=== PATIENT | female | born 1935 | race Two or more races ===

== ENCOUNTER 2017-01-23 03:42 | Inpatient (IN) | payer MEDICARE, MEDICAID ==
[~2017-01-23] VITALS: Ht 154.9 cm; Wt 99.8 kg
[2017-01-23] VITALS (7 sets, daily range): BP systolic 102–130; BP diastolic 50–70
--- NOTE | 2017-01-23 03:51 | Emergency Room Report ---
History of Present Illness General Chief Complaint: Chest Pain Source: Family Member, EMS Present Illness HPI Is an 81-year-old female with history of diabetes. She presents with chief complaint of chest pain and shortness of breath. According to family, patient complaining of dizziness and palpitation earlier today. She woke up and drink some pink lemonade. It was infused with marijuana. She did not know this. She went to sleep and woke up 3 hours later complaint of dizziness. Also complaining of chest pain and arm numbness. No nausea no vomiting. They called 911. EMS gave her aspirin and 3 nitroglycerin. It helped with the pressure. No nausea no vomiting. She felt she can't breathe. Denies any trauma. No exertional component. No diaphoresis. Nauseous but no vomiting. Allergies: Coded Allergies: No Known Allergies (Unverified , 01/23/17) Patient History Past Medical History: see triage record, old chart reviewed, DM Past Surgical History: other Pertinent Family History: none Social History: Denies: smoking Now: No Immunizations: other Reviewed Nursing Documentation: PMH: Agreed, PSxH: Agreed Nursing Documentation-PMH Hx Cardiac Problems: No - Hypothyroidism Hx Diabetes: Yes Review of Systems Eye: Denies: eye pain, blurred vision ENT: Denies: ear pain, nose congestion, throat swelling Respiratory: Reports: shortness of breath, Denies: cough Cardiovascular: Reports: chest pain, Denies: palpitations Gastrointestinal: Reports: abdominal pain, Denies: diarrhea, nausea, vomiting Musculoskeletal: Denies: back pain, joint pain Skin: Denies: rash Neurological: Denies: headache, numbness Endocrine: Denies: increased thirst, increased urine Hematologic/Lymphatic: Denies: easy bruising All Other Systems: negative except mentioned in HPI Physical Exam Vital Signs Date Time Temp Pulse Resp B/P (MAP) Pulse Ox O2 Delivery O2 Flow Rate FiO2 01/23/17 03:36 98.1 94 19 130/66 97 vitals normal Sp02 EP Interpretation: reviewed, normal General Appearance: well appearing, no apparent distress, alert, obese Head: normocephalic, atraumatic Eyes: bilateral eye PERRL, bilateral eye EOMI ENT: hearing grossly normal, normal pharynx Neck: full range of motion, supple, no meningismus Respiratory: chest non-tender, lungs clear, normal breath sounds Cardiovascular #1: regular rate, rhythm, no murmur Gastrointestinal: normal bowel sounds, non tender, no mass, no organomegaly, no bruit, non-distended Musculoskeletal: back normal, normal range of motion Psychiatric: anxious - Hyperventilating Skin: warm/dry Medical Decision Making Diagnostic Impression: Primary Impression: Chest pain Qualified Codes: R07.9 - Chest pain, unspecified Additional Impressions: Cannabis-induced anxiety disorder Morbid obesity with BMI of 40.0-44.9, adult ER Course She present with chest pain. She has multiple risk factors including obesity, high blood pressure, age, and diabetes. Symptoms may be induced by THC induced lemonade. will repeat trop and if neg, will dc home. I discussed case with doctor electron beam machine welder setter and she is willing to see pt this morning at 9am. because patient troponin is trending upward, who will admit her for further workup. Lab Results Impression labs unremarkable EKG Diagnostic Results Rate: normal Rhythm: NSR ST Segments: no acute changes ASA given to the pt in ED: No - Received by EMS Rhythm Strip Diag. Results Rhythm Strip Time: 03:51 EP Interpretation: yes Rate: 95 Rhythm: NSR, no PVC's, no ectopy Chest X-Ray Diagnostic Results Chest X-Ray Diagnostic Results : Chest X-Ray Ordered: Yes # of Views/Limited/Complete: 1 View Indication: Chest Pain EP Interpretation: Yes Interpretation: no consolidation, no effusion, no pneumothorax, no acute cardiopulmonary disease Impression: No acute disease Electronically Signed by: Electronically signed by Cassius Masters MD Last Vital Signs Date Time Temp Pulse Resp B/P (MAP) Pulse Ox O2 Delivery O2 Flow Rate FiO2 01/23/17 03:36 98.1 94 19 130/66 97 Status: improved Disposition: ADMITTED INPATIENT Condition: Serious CASSIUS MASTERS M.D. Jan 23, 2017 03:51
[2017-01-23] MEDS ORDERED: LORazepam Inj 2mg/ml 1ml IV ONE (04:00)
[2017-01-23 04:18] LABS: BASOPHILS % (AUTO) 1.1 % (0.0-2.0); EOSINOPHILS % (AUTO) 2.1 % (0.0-3.0); MEAN CORPUSCULAR HEMOGLOBIN 32.3 PG (27.0-31.0); MEAN CORPUSCULAR HGB CONC 32.3 G/DL (32.0-36.0); MEAN CORPUSCULAR VOLUME 100 FL (80-99); MEAN PLATELET VOLUME 7.6 FL (6.5-10.1); NEUTROPHILS % (AUTO) 61.9 % (45.0-75.0); PLATELET COUNT 181 K/UL (150-450); RED BLOOD COUNT 4.33 M/UL (4.20-5.40); RED CELL DISTRIBUTION WIDTH 12.1 % (11.6-14.8); WHITE BLOOD COUNT 6.9 K/UL (4.8-10.8)
[2017-01-23 04:37] LABS: ALANINE AMINOTRANSFERASE 32 U/L (12-78); ALBUMIN/GLOBULIN RATIO 1.1 (1.0-2.7); ANION GAP 5 (5-15); ASPARTATE AMINO TRANSFERASE 23 U/L (15-37); CALCIUM 9.9 MG/DL (8.5-10.1); CARBON DIOXIDE 33 MMOL/L (21-32); CHLORIDE 102 MMOL/L (98-107); CKMB 0.4 NG/ML (0.0-3.6); CREATININE 1.1 MG/DL (0.55-1.30); SODIUM 140 MMOL/L (136-145); TOTAL PROTEIN 6.9 G/DL (6.4-8.2)
[2017-01-23 05:01] LABS: APPEARANCE,URINE CLEAR; KETONES,URINE NEGATIVE (NEGATIVE); LEUKOCYTE ESTERASE ,URINE 1+ (NEGATIVE); NITRITE,URINE NEGATIVE (NEGATIVE); PH,URINE 5 (4.5-8.0); PROTEIN,URINE 1+ (NEGATIVE); UROBILINOGEN,URINE NORMAL MG/DL (0.0-1.0)
[2017-01-23 05:12] LABS: BACTERIA,URINE FEW /HPF; RBC,URINE 0-2 /HPF (0 - 2); SQUAMOUS EPITHELIAL CELL,UR FEW /LPF (NONE/OCC); WBC,URINE 0-2 /HPF (0 - 2)
[2017-01-23] MEDS ORDERED: ASPIRIN81 MG ORAL (06:44)
[2017-01-23] MEDS ORDERED: VITAMIN D1000 UNI1 ORAL (06:44)
[2017-01-23] MEDS ORDERED: LEVOTHYROXINE25 MCG ORAL (06:44)
--- NOTE | 2017-01-23 08:49 | Diagnostic Imaging Report ---
Indication: Pain Comparison: None. Findings: Single view of the chest is obtained. Please note exam is limited due to patient's large body habitus and underpenetration technique. Cardiac silhouette is enlarged.. Pulmonary vasculature is normal. Lungs are clear. Atelectasis seen in the left lower lobe. Bones are unremarkable. Impression: Limited exam due to patient's large body habitus. Cardiomegaly. There is no obvious acute pneumonitis or failure.
[2017-01-23] MEDS ORDERED: LORazepam 1mg tab ORAL PRN (12:45)
--- NOTE | 2017-01-23 13:25 | History and Physical ---
History of Present Illness General Date patient seen: Jan 23, 2017 Reason for Hospitalization: Chest Pain Present Illness HPI This is a 81 year old female with a PMH of hypothyroidism and DM who presents for shortness of breath and chest pain since last night. According to daughter, patient had some pink lemonade that was infused with cannabinoids last night ( for which she was unaware of). After an hour, she started complaining of dizziness, palpitations, shortness of breath, and chest pressure. Patient also reported bilateral upper extremity numbness and nausea but no vomiting. She was given aspirin and nitroglycerin x 3 by the EMS. Currently, patient still feels short of breath but otherwise denies chest pain, dizziness, or palpitations. She also reports severe left flank pain radiating to left upper quadrant, which started about 2 months ago intermittently but has worsened today. States that she has a h/o cholecystectomy. Denies diarrhea, constipation, h/o renal calculi. Also denies slurred speech, focal deficits, weakness, diaphoresis. Allergies: Coded Allergies: No Known Allergies (Unverified , 01/23/17) Medication History Scheduled Aspirin* (Aspirin*), 81 MG ORAL DAILY, (Reported) Cholecalciferol (Vitamin D3)* (Vitamin D*), Unknown Dose ORAL DAILY, (Reported) Levothyroxine Sodium* (Levothyroxine Sodium*), 25 MCG ORAL DAILY, (Reported) Patient History Limited by: language barrier History Provided By: Family Member Healthcare decision maker Resuscitation status Advanced Directive on File No Past Medical/Surgical History Past Medical/Surgical History: (1) Hypothyroidism (2) Hx of cholecystectomy Review of Systems All Other Systems: negative except mentioned in HPI Physical Exam General Appearance: no apparent distress HEENT: normocephalic, PERRL Neck: non-tender, normal alignment Respiratory/Chest: chest wall non-tender, lungs clear, normal breath sounds, no respiratory distress Cardiovascular/Chest: normal peripheral pulses, normal rate, regular rhythm Abdomen: normal bowel sounds, soft, no mass, other - left CVA tenderness Extremities: normal range of motion, non-tender, normal inspection Skin Exam: normal pigmentation, warm/dry Neurologic: merchandise complaint adjuster II-XII grossly normal, no motor/sensory deficits, alert, oriented x 3, responsive Last 24 Hour Vital Signs Date Time Temp Pulse Resp B/P (MAP) Pulse Ox O2 Delivery O2 Flow Rate FiO2 01/23/17 11:27 97.5 86 18 104/68 96 Nasal Cannula 3.0 01/23/17 09:59 70 01/23/17 09:45 98.4 76 17 106/51 97 Nasal Cannula 4.0 97 01/23/17 08:56 98.4 76 17 106/51 97 Nasal Cannula 01/23/17 06:55 98.7 75 16 107/60 96 Nasal Cannula 5.0 01/23/17 05:50 98.2 75 18 110/58 97 Nasal Cannula 5.0 01/23/17 04:53 98.0 84 20 122/70 96 Nasal Cannula 5.0 01/23/17 03:57 98.2 88 22 130/66 97 Nasal Cannula 5.0 01/23/17 03:55 80 22 Nasal Cannula 5.0 97 01/23/17 03:36 98.1 94 19 130/66 97 Intake and Output 01/23/17 01/24/17 19:00 07:00 Output Total 200 ml Balance -200 ml Output Urine Total 200 ml Laboratory Tests Test 01/23/17 03:55 01/23/17 04:40 01/23/17 05:30 White Blood Count 6.9 K/UL (4.8-10.8) Red Blood Count 4.33 M/UL (4.20-5.40) Hemoglobin 14.0 G/DL (12.0-16.0) Hematocrit 43.3 % (37.0-47.0) Mean Corpuscular Volume 100 FL (80-99) H Mean Corpuscular Hemoglobin 32.3 PG (27.0-31.0) H Mean Corpuscular Hemoglobin Concent 32.3 G/DL (32.0-36.0) Red Cell Distribution Width 12.1 % (11.6-14.8) Platelet Count 181 K/UL (150-450) Mean Platelet Volume 7.6 FL (6.5-10.1) Neutrophils (%) (Auto) 61.9 % (45.0-75.0) Lymphocytes (%) (Auto) 31.0 % (20.0-45.0) Monocytes (%) (Auto) 4.0 % (1.0-10.0) Eosinophils (%) (Auto) 2.1 % (0.0-3.0) Basophils (%) (Auto) 1.1 % (0.0-2.0) Sodium Level 140 MMOL/L (136-145) Potassium Level 4.0 MMOL/L (3.5-5.1) Chloride Level 102 MMOL/L (98-107) Carbon Dioxide Level 33 MMOL/L (21-32) H Anion Gap 5 (5-15) Blood Urea Nitrogen 24 mg/dL (7-18) H Creatinine 1.1 MG/DL (0.55-1.30) Estimat Glomerular Filtration Rate mL/min (>60) Glucose Level 199 MG/DL (74-106) H Calcium Level 9.9 MG/DL (8.5-10.1) Total Bilirubin 0.5 MG/DL (0.2-1.0) Aspartate Amino Transf (AST/SGOT) 23 U/L (15-37) Alanine Aminotransferase (ALT/SGPT) 32 U/L (12-78) Alkaline Phosphatase 79 U/L (46-116) Total Creatine Kinase 39 U/L (26-308) Creatine Kinase MB 0.4 NG/ML (0.0-3.6) Creatine Kinase MB Relative Index 1.0 Troponin I 0.001 ng/mL (0.000-0.056) 0.007 ng/mL (0.000-0.056) Pro-B-Type Natriuretic Peptide 48 (0-125) Total Protein 6.9 G/DL (6.4-8.2) Albumin 3.6 G/DL (3.4-5.0) Globulin 3.3 g/dL Albumin/Globulin Ratio 1.1 (1.0-2.7) Urine Color Yellow Urine Appearance Clear Urine pH 5 (4.5-8.0) Urine Specific [place] 1.025 (1.005-1.035) Urine Protein 1+ (NEGATIVE) H Urine Glucose (UA) Negative (NEGATIVE) Urine Ketones Negative (NEGATIVE) Urine Occult Blood Negative (NEGATIVE) Urine Nitrite Negative (NEGATIVE) Urine Bilirubin Negative (NEGATIVE) Urine Urobilinogen Normal MG/DL (0.0-1.0) Urine Leukocyte Esterase 1+ (NEGATIVE) H Urine RBC 0-2 /HPF (0 - 2) Urine WBC 0-2 /HPF (0 - 2) Urine Squamous Epithelial Cells Few /LPF (NONE/OCC) Urine Bacteria Few /HPF (NONE) Height (Feet): 5 Height (Inches): 1.00 Weight (Pounds): 220 Medications Current Medications Medications (Trade) Dose Ordered Sig/Mj Route PRN Reason Start Time Stop Time Status Last Admin Dose Admin Acetaminophen (Tylenol) 650 mg Q6H PRN ORAL Mild Pain/Temp > 100.5 01/23/17 12:45 02/22/17 12:44 Lorazepam (Ativan) 1 mg Q6H PRN ORAL For Anxiety 01/23/17 12:45 01/30/17 12:44 Ondansetron HCl (Zofran) 4 mg Q6H PRN IVP Nausea & Vomiting 01/23/17 12:45 02/22/17 12:44 Assessment/Plan Problem List: (1) Diabetes ICD Codes: E11.9 - Type 2 diabetes mellitus without complications SNOMED: 08238813 (2) Chest pain ICD Codes: R07.9 - Chest pain, unspecified SNOMED: 99542878, 087073995 Qualifiers: Qualified Codes: R07.9 - Chest pain, unspecified (3) Cannabis-induced anxiety disorder ICD Codes: F12.980 - Cannabis use, unspecified with anxiety disorder SNOMED: 33285765 (4) Morbid obesity with BMI of 40.0-44.9, adult ICD Codes: E66.01 - Morbid (severe) obesity due to excess calories; Z68.41 - Body mass index (BMI) 40.0-44.9, adult SNOMED: 012115147, 525437632 (5) Hypothyroidism ICD Codes: E03.9 - Hypothyroidism, unspecified SNOMED: 56919891 (6) Hx of cholecystectomy ICD Codes: Z90.49 - Acquired absence of other specified parts of digestive tract SNOMED: 25305532, 404197112 (7) Acute flank pain ICD Codes: R10.9 - Unspecified abdominal pain SNOMED: 056838053 Status: stable Status Narrative This is a 81 y/o female with a PMH of diabetes and hypothyroidism who presents with chest pain, sob, palpitations, and dizziness after drinking cannabis- infused pink lemonade. EKG was NSR but troponins were uptrending so patient was further admitted for ACS rule out. Assessment/Plan - Admit to tele - Continue home meds including levothyroxine, ASA 81mg, and vitamin D - Trend troponins q6hr x 2 - check urine tox - ativan prn - Check TTE - CXR reviewed with no active disease. Cardiomegaly present - EKG reviewed NSR - Cardiology consulted - Check amylase, lipase, CT a/p w/o contrast given left flank pain radiating to left upper quadrant - zofran and pain control prn - Continue levothyroxine. Check TSH - off diabetic meds. check A1c Andree Brown N.P. Jan 23, 2017 13:25
[2017-01-23 15:00] LABS: THYROID STIMULATING HORMONE 0.957 uiU/mL (0.360-3.740)
[2017-01-23] MEDS: Heparin 5000 units/ml inj SUBQ SCH (22:41)
[2017-01-24 04:48] VITALS: BP 106/57
[2017-01-24 08:17] VITALS: BP 68/34
[2017-01-24 08:46] LABS: BASOPHILS % (AUTO) 0.8 % (0.0-2.0); EOSINOPHILS % (AUTO) 2.3 % (0.0-3.0); LYMPHOCYTES % (AUTO) 36.6 % (20.0-45.0); MEAN CORPUSCULAR HEMOGLOBIN 33.6 PG (27.0-31.0); MEAN CORPUSCULAR HGB CONC 32.4 G/DL (32.0-36.0); MEAN CORPUSCULAR VOLUME 104 FL (80-99); MONOCYTES % (AUTO) 5.1 % (1.0-10.0); NEUTROPHILS % (AUTO) 55.2 % (45.0-75.0); PLATELET COUNT 159 K/UL (150-450); RED BLOOD COUNT 4.17 M/UL (4.20-5.40); RED CELL DISTRIBUTION WIDTH 12.6 % (11.6-14.8)
[2017-01-24] MEDS ORDERED: D5 1/2NS 1,000 ML IV SCH (09:00)
[2017-01-24] MEDS ORDERED: Sodium Chloride 500ML 500 ML IV ONE (09:00)
[2017-01-24 09:09] LABS: ALANINE AMINOTRANSFERASE 32 U/L (12-78); ALBUMIN/GLOBULIN RATIO 1.1 (1.0-2.7); ANION GAP 2 (5-15); ASPARTATE AMINO TRANSFERASE 21 U/L (15-37); CALCIUM 9.4 MG/DL (8.5-10.1); CARBON DIOXIDE 36 MMOL/L (21-32); CHLORIDE 107 MMOL/L (98-107); CREATININE 0.9 MG/DL (0.55-1.30); POTASSIUM 4.5 MMOL/L (3.5-5.1); SODIUM 145 MMOL/L (136-145); TOTAL PROTEIN 6.4 G/DL (6.4-8.2)
[2017-01-24] MEDS: Heparin 5000 units/ml inj SUBQ SCH ×2 (09:15→21:06)
[2017-01-24 11:50] VITALS: BP 92/43
--- NOTE | 2017-01-24 11:56 | Diagnostic Imaging Report ---
Indication: Left flank pain Technique: Spiral acquisitions obtained through the abdomen and pelvis. No oral or IV contrast utilized, per urinary stone protocol. Multiplanar reconstructions were generated. Total dose length product 1046 mGycm. CTDIvol(s) 19 mGy. Dose reduction achieved using automated exposure control Comparison: None Findings: No renal or ureteral calculi, hydronephrosis, or hydroureter demonstrated on either side. Lack of IV contrast limits assessment of the renal parenchyma. There is a 1 cm cyst coming off of the lower pole right kidney. No gross left renal mass or cyst demonstrated. There is colonic diverticulosis. No evidence of diverticulitis. What is probably a tiny normal appendix is visualized. There is a small fat-containing broad-based umbilical hernia which contain only fat. No small bowel distention. No free or loculated intraperitoneal air or fluid. Distal esophagus, stomach, duodenum are unremarkable. Lack of IV contrast limits assessment of the solid organs. The liver is grossly unremarkable. The gallbladder is surgically absent. No biliary ductal dilatation. The pancreas is somewhat atrophic. Scattered calcifications are seen within the spleen. The adrenals are unremarkable. The uterus is prominent for age, demonstrates a globular configuration. No adnexal mass demonstrated. Atelectatic changes are seen at both lung bases. The heart is enlarged. The bones demonstrate degenerative spondylosis changes. Impression: Negative for obstructive uropathy or urinary stone disease. No other acute pathology demonstrated Incidental finding small right lower pole renal cyst Prominent uterus with globular configuration. Most likely on the basis of fibroid changes, but endometrial polyp not excludable. Recommend pelvic and endovaginal ultrasound for further evaluation Diverticulosis. No evidence of diverticulitis Evidence of prior cholecystectomy Cardiomegaly Other findings as noted, including degenerative spondylosis, basilar pulmonary parenchymal atelectasis, pancreatic atrophy, small fat-containing umbilical hernia The CT scanner at [facility] is accredited by the [employer] and the scans are performed using protocols designed to limit radiation exposure to as low as reasonably achievable to attain images of sufficient resolution adequate for diagnostic evaluation.
--- NOTE | 2017-01-24 14:05 | General Progress Note ---
Assessment/Plan Problem List: (1) Mid to lower back pain (2) Chest pain ICD Codes: R07.9 - Chest pain, unspecified SNOMED: 47023829, 885379194 Qualifiers: Qualified Codes: R07.9 - Chest pain, unspecified (3) Diabetes Assessment & Plan: A1C 7.3 ICD Codes: E11.9 - Type 2 diabetes mellitus without complications SNOMED: 96358860 (4) Cannabis-induced anxiety disorder ICD Codes: F12.980 - Cannabis use, unspecified with anxiety disorder SNOMED: 88016704 (5) Morbid obesity with BMI of 40.0-44.9, adult ICD Codes: E66.01 - Morbid (severe) obesity due to excess calories; Z68.41 - Body mass index (BMI) 40.0-44.9, adult SNOMED: 090079393, 558257957 (6) Hypothyroidism ICD Codes: E03.9 - Hypothyroidism, unspecified SNOMED: 02262814 (7) Acute flank pain ICD Codes: R10.9 - Unspecified abdominal pain SNOMED: 547823029 Status: stable Status Narrative This is a 81 y/o female with a PMH of diabetes and hypothyroidism who presents with chest pain, sob, palpitations, and dizziness after drinking cannabis- infused pink lemonade. EKG was NSR but troponins were uptrending so patient was further admitted for ACS rule out. Trop neg x 3 so pt has been ruled out for ACS. Assessment/Plan - Monitor on tele - Continue home meds including levothyroxine, ASA 81mg, and vitamin D - Trop neg x3 - TTE reviewed and unremarkable, normal EF - Ativan prn - Cardiology consulted--plan for nuc stress test in AM - CT a/p done for acute flank pain was unremarkable. - Check L and T spine x-rays - Zofran and pain control prn DVT Prophylaxis: SCD, HSQ Code Status: Full Hospital Classification Declaration: Based on this initial evaluation, and depending on the patient's clinical course, I anticipate that this patient will require hospitalization for 1-2 days for cardiology eval and close respiratory/ hemodynamic monitoring. Disposition: Once the patient is stable to leave the hospital, I anticipate the patient will likely be discharged to the following environment: home with vs SNF I spent 45 minutes on this patient's case, and 25 minutes were dedicated to counseling and/or care coordination. Discussed with patient/family, nursing staff, SW/CM, cardiology regarding clinical status, treatment course, and disposition planning. Time of note may not reflect time of encounter. Subjective Date patient seen: Jan 24, 2017 Time patient seen: 14:05 ROS Limited/Unobtainable: No Constitutional: Reports: no symptoms HEENT: Reports: no symptoms Cardiovascular: Reports: no symptoms Respiratory: Reports: no symptoms Gastrointestinal/Abdominal: Reports: no symptoms Genitourinary: Reports: no symptoms Neurologic/Psychiatric: Reports: no symptoms Endocrine: Reports: no symptoms Hematologic/Lymphatic: Reports: no symptoms Allergies: Coded Allergies: No Known Allergies (Unverified , 01/23/17) Subjective No acute o/n events Trop neg x [address] a/p unremarkable Pt c/o L sided abd/flank/back pain Denies chest pain, SOB, f/c, n/v, d/c Daughter at bedside requesting back x-rays Objective Last 24 Hour Vital Signs Date Time Temp Pulse Resp B/P (MAP) Pulse Ox O2 Delivery O2 Flow Rate FiO2 01/24/17 12:00 63 01/24/17 11:50 96.3 74 18 92/43 98 Nasal Cannula 4.0 01/24/17 08:17 97.7 66 18 68/34 99 Nasal Cannula 4.0 01/24/17 08:00 63 01/24/17 04:48 97.5 73 20 106/57 93 Nasal Cannula 4.0 73 01/24/17 04:00 71 01/24/17 00:00 62 01/23/17 20:00 64 01/23/17 16:00 72 01/23/17 15:45 97.9 64 18 102/50 96 Nasal Cannula 4.0 Intake and Output 01/24/17 01/25/17 19:00 07:00 Output Total 250 ml Balance -250 ml Output Urine Total 250 ml Laboratory Tests 01/23/17 14:25: Hemoglobin A1c 7.3H, Troponin I 0.006, Amylase Level 38, Lipase 123, Thyroid Stimulating Hormone (TSH) 0.957 01/23/17 19:10: Troponin I 0.017 01/24/17 07:50: White Blood Count 5.0, Red Blood Count 4.17L, Hemoglobin 14.0, Hematocrit 43.2, Mean Corpuscular Volume 104H, Mean Corpuscular Hemoglobin 33.6H, Mean Corpuscular Hemoglobin Concent 32.4, Red Cell Distribution Width 12.6, Platelet Count 159, Mean Platelet Volume 8.0, Neutrophils (%) (Auto) 55.2, Lymphocytes (% ) (Auto) 36.6, Monocytes (%) (Auto) 5.1, Eosinophils (%) (Auto) 2.3, Basophils ( %) (Auto) 0.8, Sodium Level 145, Potassium Level 4.5, Chloride Level 107, Carbon Dioxide Level 36H, Anion Gap 2L, Blood Urea Nitrogen 20H, Creatinine 0.9 , Estimat Glomerular Filtration Rate , Glucose Level 104, Calcium Level 9.4, Total Bilirubin 0.4, Aspartate Amino Transf (AST/SGOT) 21, Alanine Aminotransferase (ALT/SGPT) 32, Alkaline Phosphatase 62, Total Protein 6.4, Albumin 3.3L, Globulin 3.1, Albumin/Globulin Ratio 1.1 Height (Feet): 5 Height (Inches): 1.00 Weight (Pounds): 220 Objective General: alert, cooperative, no distress, appears stated age Head: normocephalic, without obvious abnormality, atraumatic Eyes: conjunctivae/corneas clear. PERRL, EOM's intact Throat: lips, mucosa, and tongue normal. MMM Neck: supple, symmetrical, trachea midline, and no JVD Lungs: clear to auscultation bilaterally Heart: regular rate and rhythm, S1, S2 normal, no murmur, click, rub or gallop Abdomen: soft, non-tender, non-distended, bowel sounds normal; no masses or organomegaly Extremities: extremities normal, atraumatic, no cyanosis or edema Pulses: 2+ and symmetric Skin: skin color, texture, turgor normal; no rashes or lesions Neurologic: grossly normal, no focal deficits Darwin Sharp M.D. Jan 24, 2017 14:05
[2017-01-24 15:25] VITALS: BP 90/39
[2017-01-24] MEDS: NovoLOG Insulin Flexpen SUBQ SCH ×2 (16:30→21:00)
--- NOTE | 2017-01-24 17:08 | Cardiac Electrophysiology PN ---
Subjective Subjective Dictated.No MA. ECG LAFB, ECHO NL EF, Stress test in am.[id number] Objective Last 24 Hour Vital Signs Date Time Temp Pulse Resp B/P (MAP) Pulse Ox O2 Delivery O2 Flow Rate FiO2 01/24/17 15:25 96.9 78 18 90/39 94 Nasal Cannula 4.0 01/24/17 12:00 63 01/24/17 11:50 96.3 74 18 92/43 98 Nasal Cannula 4.0 01/24/17 08:17 97.7 66 18 68/34 99 Nasal Cannula 4.0 01/24/17 08:00 63 01/24/17 04:48 97.5 73 20 106/57 93 Nasal Cannula 4.0 73 01/24/17 04:00 71 01/24/17 00:00 62 01/23/17 20:00 64 Intake and Output 01/24/17 01/25/17 19:00 07:00 Intake Total 320 ml Output Total 250 ml Balance 70 ml Intake Oral 320 ml Output Urine Total 250 ml Laboratory Tests Test 01/23/17 19:10 01/24/17 07:50 Troponin I 0.017 ng/mL (0.000-0.056) White Blood Count 5.0 K/UL (4.8-10.8) Red Blood Count 4.17 M/UL (4.20-5.40) L Hemoglobin 14.0 G/DL (12.0-16.0) Hematocrit 43.2 % (37.0-47.0) Mean Corpuscular Volume 104 FL (80-99) H Mean Corpuscular Hemoglobin 33.6 PG (27.0-31.0) H Mean Corpuscular Hemoglobin Concent 32.4 G/DL (32.0-36.0) Red Cell Distribution Width 12.6 % (11.6-14.8) Platelet Count 159 K/UL (150-450) Mean Platelet Volume 8.0 FL (6.5-10.1) Neutrophils (%) (Auto) 55.2 % (45.0-75.0) Lymphocytes (%) (Auto) 36.6 % (20.0-45.0) Monocytes (%) (Auto) 5.1 % (1.0-10.0) Eosinophils (%) (Auto) 2.3 % (0.0-3.0) Basophils (%) (Auto) 0.8 % (0.0-2.0) Sodium Level 145 MMOL/L (136-145) Potassium Level 4.5 MMOL/L (3.5-5.1) Chloride Level 107 MMOL/L (98-107) Carbon Dioxide Level 36 MMOL/L (21-32) H Anion Gap 2 (5-15) L Blood Urea Nitrogen 20 mg/dL (7-18) H Creatinine 0.9 MG/DL (0.55-1.30) Estimat Glomerular Filtration Rate mL/min (>60) Glucose Level 104 MG/DL (74-106) Calcium Level 9.4 MG/DL (8.5-10.1) Total Bilirubin 0.4 MG/DL (0.2-1.0) Aspartate Amino Transf (AST/SGOT) 21 U/L (15-37) Alanine Aminotransferase (ALT/SGPT) 32 U/L (12-78) Alkaline Phosphatase 62 U/L (46-116) Total Protein 6.4 G/DL (6.4-8.2) Albumin 3.3 G/DL (3.4-5.0) L Globulin 3.1 g/dL Albumin/Globulin Ratio 1.1 (1.0-2.7) HOLLY CARIAS Jan 24, 2017 17:08
[2017-01-24] MEDS: Aspirin Baby 81mg ORAL SCH (17:26)
[2017-01-24 20:00] VITALS: BP 87/41
[2017-01-24 22:00] VITALS: BP 103/60
[2017-01-25] VITALS: BP 92/42
[2017-01-25 04:00] VITALS: BP 100/52
[2017-01-25] MEDS: NovoLOG Insulin Flexpen SUBQ SCH ×4 (06:30→21:00)
[2017-01-25] MEDS ORDERED: Levothyroxine 25mcg tab ORAL SCH (06:30)
[2017-01-25 08:11] VITALS: BP 107/82
--- NOTE | 2017-01-25 08:17 | Consultation ---
DATE OF CONSULTATION: 01/24/2017 CARDIOLOGY CONSULTATION CONSULTING PHYSICIAN: Raheem Pardo M.D. REFERRING PHYSICIAN: Eloisa Malcolm M.D. REASON FOR CONSULTATION: Chest pain. HISTORY OF PRESENT ILLNESS: The patient is an 81-year-old, lady with history of hypertension, diabetes, and hypothyroidism who presents to the hospital with increasing shortness of breath, chest pain and abdominal pain. The patient apparently had some infused with cannabinoids the night before for which she apparently was unaware of. Later, the patient started having dizziness, palpitation, shortness of breath, and chest pain. The patient was given aspirin and nitroglycerin by the paramedics and was brought to the emergency room. She also complained of severe left-sided flank pain radiation to left upper chest that has been going on for about two months. PAST MEDICAL HISTORY: As mentioned above. PAST SURGICAL HISTORY: Includes cholecystectomy. MEDICATIONS: Per reconciliation. REVIEW OF SYSTEMS: Review of systems was performed and was negative other than what was mentioned in the history of present illness. PHYSICAL EXAMINATION: VITAL SIGNS: Blood pressure is 90/39, pulse 78, respirations 18, and she is afebrile. HEAD AND NECK: Showed no JVD. LUNGS: Clear. CARDIOVASCULAR: Shows regular S1 and S2 with no gallop or murmur. ABDOMEN: Obese. EXTREMITIES: No pitting edema. LABORATORY AND DIAGNOSTIC DATA: EKG shows sinus rhythm with left anterior fascicular block with disease pattern. Her labs show white count of 5, hemoglobin 14, hematocrit 43, and platelet count 159. Sodium is 145, potassium 4.5, BUN 20, creatinine 0.9, and glucose of 104. Troponin is negative x2. ASSESSMENT AND PLAN: 1. Atypical chest pain, the patient will be ruled out for myocardial infarction. EKG has underlying left anterior fascicular block and secondary repolarization abnormality. She also underwent an echocardiogram which showed ejection fraction of 55%. We will schedule the patient for nuclear stress test in the morning. 2. Hypothyroidism on Synthroid. 3. Abdominal pain. The patient underwent an abdominal and pelvic CT scan, which was negative for obstructive uropathy or urinary stone disease, no other acute pathology found as well as evidence of diverticulosis without diverticulitis. 4. History of prior . Thank you very much, Dr. Malcolm for allowing me to participate in the care of this patient. Please do not hesitate to contact me if you have any questions regarding my evaluation. Raheem Pardo M.D. DR: EFRAIN JOB#: [id number] CC:
[2017-01-25 08:30] LABS: CHOLESTEROL 139 MG/DL (< 200); CHOLESTEROL/HDL RATIO 3.2 (3.3-4.4)
[2017-01-25] MEDS: Aspirin Baby 81mg ORAL SCH (09:00)
[2017-01-25] MEDS ORDERED: Vitamin D 1000 IU Tab ORAL SCH (09:00)
[2017-01-25 11:49] VITALS: BP 97/48
[2017-01-25] MEDS: Heparin 5000 units/ml inj SUBQ SCH ×2 (12:01→21:49)
--- NOTE | 2017-01-25 12:44 | Diagnostic Imaging Report ---
Indication: Back pain Comparison: None Findings: 3 views of the lumbar spine were obtained. Multilevel narrowing of intervertebral disks and associated endplate and Facet osteophytes are present. No malalignment identified. No acute fracture definitely seen. Impression: Moderate spondylosis. No acute injury appreciated. Note: The study is significantly limited in visualization is less than optimum.
--- NOTE | 2017-01-25 12:45 | Diagnostic Imaging Report ---
Indication: Back pain Findings: 2 views of the thoracic spine were obtained. The bones are osteopenic. Degenerative endplate spurs demonstrated throughout the thoracic spine. No obvious fracture seen. Impression: No obvious fracture
[2017-01-25] MEDS ORDERED: Adenosine Inj IVP ONE (13:30)
[2017-01-25 15:34] VITALS: BP 97/50
--- NOTE | 2017-01-25 16:12 | Cardiac Electrophysiology PN ---
Assessment/Plan Assessment/Plan 1. Atypical chest pain, was ruled out for myocardial infarction. EKG has underlying left anterior fascicular block and secondary repolarization abnormality. She also underwent an echocardiogram which showed ejection fraction of 55%. Had adenosine nuclear stress test today but nuclear images pending. 2. Hypothyroidism on Synthroid. 3. Abdominal pain. The patient underwent an abdominal and pelvic CT scan, which was negative for obstructive uropathy or urinary stone disease, no other acute pathology found as well as evidence of diverticulosis without diverticulitis. MILAN RN and Dr Vázquez who did the stress test today. Subjective Subjective Comfortable in NAD. Had Adenosine Cardiolite today. Results pending. Objective Last 24 Hour Vital Signs Date Time Temp Pulse Resp B/P (MAP) Pulse Ox O2 Delivery O2 Flow Rate FiO2 01/25/17 15:34 99.5 88 18 97/50 94 Nasal Cannula 4.0 01/25/17 12:00 70 01/25/17 11:49 97.1 63 18 97/48 99 Nasal Cannula 4.0 01/25/17 08:11 97.3 75 18 107/82 100 Nasal Cannula 4.0 01/25/17 08:00 63 01/25/17 04:00 98.1 59 18 100/52 97 Nasal Cannula 3.0 01/25/17 03:44 57 01/25/17 00:00 97.5 60 18 92/42 94 Nasal Cannula 4.0 60 01/24/17 23:59 62 01/24/17 22:00 103/60 01/24/17 20:00 98.1 74 20 87/41 94 Room Air 01/24/17 19:29 67 Intake and Output 01/25/17 01/26/17 19:00 07:00 Intake Total 500 ml Balance 500 ml Intake Oral 500 ml # Voids 2 # Bowel Movements 1 Laboratory Tests Test 01/25/17 07:25 Triglycerides Level 132 MG/DL (0-200) Cholesterol Level 139 MG/DL (< 200) LDL Cholesterol 83 mg/dL (<100) HDL Cholesterol 43 MG/DL (40-60) Cholesterol/HDL Ratio 3.2 (3.3-4.4) L Objective HEAD AND NECK: Showed no JVD. LUNGS: Clear. CARDIOVASCULAR: Shows regular S1 and S2 with no gallop or murmur. ABDOMEN: Obese. EXTREMITIES: No pitting edema. HOLLY CARIAS 17, 2017 16:12
--- NOTE | 2017-01-25 17:05 | Diagnostic Imaging Report ---
Indication: chest pain Technique: The study was conducted under the supervision of a resource specialist teacher. Adenosine infusion followed by intravenous administration of 30.1 mCi of technetium 99m Myoview was performed. Three plane SPECT imaging of the heart was then performed. A resting study was performed as part of the one-day protocol with 3 mCi of technetium 99m myoview injected intravenously at that time. Three plane SPECT imaging of the heart was obtained. Comparison: None Clinical data: 1. Clinical response: Nondiagnostic 2. Electrocardiographic response: Non ischemic Findings: The myocardial perfusion scan demonstrates a small perfusion defect in the apex of the left ventricle. No reversible perfusion defects are seen. This appears fixed. LVEF is estimated at 67%. Impression: No definite evidence of myocardial ischemia. Probable small left ventricular apical infarct.
[2017-01-25] MEDS ORDERED: METFORMIN HCL500 M1 ORAL ×2 (18:47→18:55)
[2017-01-25] MEDS ORDERED: JANUVIA25 MG ORAL ×2 (18:50→18:55)
[2017-01-25] MEDS ORDERED: PROCTOFOAM-HC 110 GM RC (18:54)
[2017-01-25 20:00] VITALS: BP 119/63
--- NOTE | 2017-01-26 11:42 | Diagnostic Imaging Report ---
Indication: Postmenopausal pain, prominent uterus demonstrated on prior CT Technique: Transabdominal and transvaginal images Comparison: Reference made to CT scan 01/23/2017 Findings: Uterus measures 9 cm in length by 5.5 cm AP AP. Upper fundal heterogeneous mass measures 5.5 x 5.8 cm. Tiny submucosal cyst is seen in the cervix, measures 3 mm diameter. Neither ovary could be demonstrated. No adnexal mass. Small amount of free fluid seen in the cul-de-sac. Small amount of debris is seen in the endocervical canal Impression: 5 x 5 x 5.8 cm uterine fundal mass, probably a fibroid, presumably explains abnormality described on recent CT scan Small amount of debris in the endometrial canal, nonspecific Trace free pelvic fluid. Not physiologic in a postmenopausal female
--- NOTE | 2017-01-28 22:16 | Discharge Summary ---
Discharge Summary Hospital Course Date of Admission Jan 23, 2017 at 05:17 Date of Discharge Jan 25, 2017 at 22:30 Admitting Diagnosis CHEST PAIN Reason for Hospitalization: concern for ACS HPI 81 year old female with a PMH of hypothyroidism and DM who presents for shortness of breath and chest pain since last night. According to daughter, patient had some pink lemonade that was infused with cannabinoids last night ( for which she was unaware of). After an hour, she started complaining of dizziness, palpitations, shortness of breath, and chest pressure. Patient also reported bilateral upper extremity numbness and nausea but no vomiting. She was given aspirin and nitroglycerin x 3 by the EMS. Currently, patient still feels short of breath but otherwise denies chest pain, dizziness, or palpitations. She also reports severe left flank pain radiating to left upper quadrant, which started about 2 months ago intermittently but has worsened today. States that she has a h/o cholecystectomy. Denies diarrhea, constipation, h/o renal calculi. Also denies slurred speech, focal deficits, weakness, diaphoresis. Consultations Cardiology Hospital Course Pt was admitted to [facility]. She was ruled out for ACS with serial trop/EKG. TTE showed normal EF w/o WMAs. Pt underwent nuclear cardiac stress test and was cleared for discharge by cardiology. 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 She was counseled on avoiding cannabis. Pt also w/ acute L flank pain and acute on chronic back pain. Imaging was unremarkable for source of pain. Likely musculoskeletal pathology. Discharge physical exam General: alert, cooperative, no distress, appears stated age Head: normocephalic, without obvious abnormality, atraumatic Eyes: conjunctivae/corneas clear. PERRL, EOM's intact Throat: lips, mucosa, and tongue normal. MMM Neck: supple, symmetrical, trachea midline, and no JVD Lungs: clear to auscultation bilaterally Heart: regular rate and rhythm, S1, S2 normal, no murmur, click, rub or gallop Abdomen: soft, non-tender, non-distended, bowel sounds normal; no masses or organomegaly Extremities: extremities normal, atraumatic, no cyanosis or edema Pulses: 2+ and symmetric Skin: skin color, texture, turgor normal; no rashes or lesions Neurologic: grossly normal, no focal deficits Discharge Medications New Medications: Hydrocortisone/Pramoxine (Proctofoam-Hc 1%-1% Foam) 10 Gm Foam 10 GM RC TID for 14 Days, #1 TUB 1 Refill Metformin Hcl* (Metformin Hcl*) 500 Mg Tablet 500 MG ORAL TWICE A DAY for 30 Days, #60 TAB 1 Refill Sitagliptin* (Januvia*) 25 Mg Tablet 25 MG ORAL DAILY for 30 Days, #30 TAB 1 Refill Continued Medications: Aspirin* (Aspirin*) 81 Mg Tab.chew 81 MG ORAL DAILY, TAB Cholecalciferol (Vitamin D3)* (Vitamin D*) 1,000 Unit Tablet Unknown Dose ORAL DAILY, #30 TAB Levothyroxine Sodium* (Levothyroxine Sodium*) 25 Mcg Tablet 25 MCG ORAL DAILY, TAB Take in the morning on an empty stomach, at least 30 minutes before food. Discharge Condition Upon Discharge: stable Discharge Disposition Patient was discharged to Home (01) Discharge Diagnoses: (1) Cannabis-induced anxiety disorder (2) Atypical chest pain (3) Mid to lower back pain (4) Acute flank pain (5) Diabetes (6) Hypothyroidism Darwin Sharp M.D. Jan 28, 2017 22:16
--- NOTE | 2017-02-01 08:21 | Cardiology Report ---
APPROVED REPORT EXAM: Two-dimensional and M-mode echocardiogram with Doppler and color Doppler. INDICATION Chest Pain M-Mode DIMENSIONS IVSd1.3 (0.7-1.1cm)Left Atrium (MM)4.1 (1.6-4.0cm) LVDd5.3 (3.5-5.6cm)Aortic Root3.4 (2.0-3.7cm) PWd1.1 (0.7-1.1cm)Aortic Cusp Exc.2.0 (1.5-2.0cm) LVDs3.4 (2.5-4.0cm) PWs2.0 cm Technically difficult study due to patient body habitus. Normal left ventricular chamber size, systolic function and wall motion to extent visualized. Left ventricular ejection fraction estimated to be 55 %. Mild left ventricular hypertrophy. Anterior Echo-free space, may be due to pericardial fat or effusion. Mild bi-atrial enlargement. Right ventricular chamber sizes is within normal limits. Mild focal aortic valve sclerosis with adequate cusp excursion. Mildly thickened mitral valve leaflets with normal excursion. Mild mitral annulus and aortic root calcification. Pulmonic valve not visualized. Normal tricuspid valve structure. IVC dilated at 1.7 cm with physiologic collapse. A color flow and spectral Doppler study was performed and revealed: No aortic regurgitation. Trace mitral regurgitation. Mitral diastolic velocities suggest reduced left ventricular relaxation c/w mild LV diastolic dysfunction (Grade I ). Mild tricuspid regurgitation. Tricuspid systolic velocities suggests peak right ventricular systolic pressure of 33 mmHg.
--- NOTE | 2017-02-01 08:26 | Cardiology Report ---
APPROVED REPORT EKG Measurement Heart [id number] Normal sinus rhythm with sinus arrhythmia Pulmonary disease pattern Left anterior fascicular block Abnormal ECG
== END 2017-01-25 22:30 | DRG 918 ==
LOC: EDBD 03:42 → EMR 03:56 → 2E 05:17 → EDBEDREQ 08:29 → 2E 18:25
DX: T40.7X1A Poisoning by cannabis (derivatives), accidental (unintentional), initial encounter (principal); Z68.41 Body mass index [BMI] 40.0-44.9, adult; E11.9 Type 2 diabetes mellitus without complications; R07.9 Chest pain, unspecified; E66.01 Morbid (severe) obesity due to excess calories; E03.9 Hypothyroidism, unspecified; R10.9 Unspecified abdominal pain; K57.90 Diverticulosis of intestine, part unspecified, without perforation or abscess without bleeding; M54.89 Other dorsalgia; F41.8 Other specified anxiety disorders
CPT/HCPCS: 36415; 51701; 71010; 72020; 72070; 74176; 76856; 78452; 80053; 80061; 81003; 82150; 82550; 82553; 82962; 83036; 83690; 83880; 84443; 84484; 85025; 93005; 93017; 93306; 99285; J1815; J2405